=== PATIENT | male | born 1970 | race Caucasian/White ===

== ENCOUNTER 2017-08-19 21:01 | Emergency (ER) | payer SELFPAY ==
[~2017-08-19] VITALS: Ht 167.6 cm; Wt 85.8 kg
[2017-08-19 21:36] VITALS: BP 139/74; Ht 167.6 cm; Wt 85.8 kg
== END 2017-08-19 23:37 | disposition left against medical advice (07) ==
LOC: ED 21:01
DX: Z53.21 Procedure and treatment not carried out due to patient leaving prior to being seen by health care provider (principal)

== ENCOUNTER 2017-08-20 18:40 | Emergency (ER) | payer SELFPAY ==
[~2017-08-20] VITALS: Ht 167.6 cm; Wt 87.5 kg
[2017-08-20 19:46] VITALS: Ht 167.6 cm; Wt 87.5 kg
[2017-08-20 21:56] VITALS: BP 142/84
== END 2017-08-20 21:45 | disposition home or self-care (01) ==
LOC: ED 18:40
DX: B02.9 Zoster without complications (principal); R03.0 Elevated blood-pressure reading, without diagnosis of hypertension
CPT/HCPCS: J1885

== ENCOUNTER 2018-08-05 22:31 | Emergency (ER) | payer MEDICAID ==
[~2018-08-05] VITALS: Ht 167.6 cm; Wt 69.9 kg
[2018-08-05 22:57] VITALS: BP 136/87; Ht 167.6 cm; Wt 69.9 kg
== END 2018-08-06 00:15 | disposition home or self-care (01) ==
LOC: ED 22:31
DX: G89.29 Other chronic pain (principal); M25.511 Pain in right shoulder
CPT/HCPCS: Q0092

== ENCOUNTER 2018-08-14 14:23 | Emergency (ER) | payer MEDICAID ==
[~2018-08-14] VITALS: Ht 167.6 cm; Wt 70.3 kg
[2018-08-14 14:26] VITALS: BP 133/75; Ht 167.6 cm; Wt 70.3 kg
== END 2018-08-14 15:09 | disposition home or self-care (01) ==
LOC: ED 14:23
DX: S61.306A Unspecified open wound of right little finger with damage to nail, initial encounter (principal); X58.XXXA Exposure to other specified factors, initial encounter; Y93.89 Activity, other specified; Y92.89 Other specified places as the place of occurrence of the external cause; Y99.8 Other external cause status

== ENCOUNTER 2019-09-09 21:10 | Emergency (ER) | payer MEDICAID, SELFPAY ==
[~2019-09-09] VITALS: Ht 165.1 cm; Wt 79.6 kg
[2019-09-09 21:58] LABS: BASOPHIL % 0.5 % (0-2); PLATELET COUNT 217 x10^3mcL (130-400); RED CELL DISTRIBUTION WIDTH 14.1 % (11.5-14.5)
[2019-09-09 22:13] LABS: CALCIUM 8.8 mg/dL (8.5-10.1); CARBON DIOXIDE 29.9 mmol/L (21-32); CHLORIDE SERUM 107 mmol/L (98-107); GFR1 > 60 mL/min; GLUCOSE SERUM 106 mg/dL (74-106); POTASSIUM SERUM 3.7 mmol/L (3.5-5.1); SODIUM SERUM 143 mmol/L (136-145)
[2019-09-09 22:18] LABS: ALBUMIN 3.9 g/dL (3.4-5.0); ALKALINE PHOSPHATASE 100 U/L (46-116); ALT/SGPT 62 U/L (16-63); AST/SGOT 60 U/L (15-37); BILIRUBIN TOTAL 2.04 mg/dL (0.20-1.00); LIPASE 82 IU/L (73-393); TOTAL PROTEIN, SERUM 7.1 g/dL (6.4-8.2)
[2019-09-09 22:25] LABS: FREE T4 1.24 ng/dL (0.76-1.46); FREE THYROXINE INDEX 3.3 ug/dL (1.4-4.5); T4(THYROXINE) 8.8 ug/dL (4.7-13.3)
[2019-09-09 22:26] LABS: T3 TOTAL 1.13 ng/mL
[2019-09-10 00:20] VITALS: BP 121/64
== END 2019-09-10 00:20 | disposition home or self-care (01) ==
LOC: ED 21:10
PROVIDERS: Emergency Medicine
DX: R10.13 Epigastric pain (principal); R51 Headache; R63.0 Anorexia; R53.1 Weakness; Z20.828 Contact with and (suspected) exposure to other viral communicable diseases
CPT/HCPCS: 36415; 84439; Q0092

== ENCOUNTER 2019-12-20 16:40 | Emergency (ER) | payer MEDICAID ==
[~2019-12-20] VITALS: Ht 167.6 cm; Wt 80.7 kg
[2019-12-20 16:57] VITALS: Ht 167.6 cm; Wt 80.7 kg
[2019-12-20 17:37] VITALS: BP 130/71
== END 2019-12-20 17:37 | disposition home or self-care (01) ==
LOC: ED 16:40
DX: L03.115 Cellulitis of right lower limb (principal); S81.831A Puncture wound without foreign body, right lower leg, initial encounter; W57.XXXA Bitten or stung by nonvenomous insect and other nonvenomous arthropods, initial encounter; Y93.89 Activity, other specified; Y92.89 Other specified places as the place of occurrence of the external cause; Y99.8 Other external cause status
CPT/HCPCS: J2930

== ENCOUNTER 2020-01-06 17:10 | Emergency (ER) | payer MEDICAID ==
[~2020-01-06] VITALS: Ht 167.6 cm; Wt 87.1 kg
[2020-01-06 17:25] VITALS: BP 103/51; Ht 167.6 cm; Wt 87.1 kg
== END 2020-01-06 18:25 | disposition home or self-care (01) ==
LOC: ED 17:10
DX: L03.116 Cellulitis of left lower limb (principal)

== ENCOUNTER 2020-02-07 22:27 | Emergency (ER) | payer MEDICAID ==
[~2020-02-07] VITALS: Ht 165.1 cm; Wt 78.0 kg
[2020-02-07 22:31] VITALS: Ht 165.1 cm; Wt 78.0 kg
[2020-02-07 23:25] LABS: BASOPHIL % 0.3 % (0-2); PLATELET COUNT 208 x10^3mcL (130-400); RED CELL DISTRIBUTION WIDTH 15.1 % (11.5-14.5)
[2020-02-07 23:35] LABS: CALCIUM 8.7 mg/dL (8.5-10.1); CARBON DIOXIDE 28.1 mmol/L (21-32); CHLORIDE SERUM 106 mmol/L (98-107); GFR1 > 60 mL/min; GLUCOSE SERUM 112 mg/dL (74-106); POTASSIUM SERUM 3.2 mmol/L (3.5-5.1); SODIUM SERUM 142 mmol/L (136-145)
[2020-02-08 00:38] VITALS: BP 152/81
== END 2020-02-08 00:38 | disposition home or self-care (01) ==
LOC: ED 22:27
PROVIDERS: Emergency Medicine
DX: E86.0 Dehydration (principal); R42 Dizziness and giddiness; F12.10 Cannabis abuse, uncomplicated; R20.2 Paresthesia of skin

== ENCOUNTER 2020-03-01 11:15 | Emergency (ER) | payer MEDICAID ==
[~2020-03-01] VITALS: Ht 165.1 cm; Wt 70.8 kg
[2020-03-01 11:25] VITALS: Ht 165.1 cm; Wt 70.8 kg
[2020-03-01 14:24] VITALS: BP 134/79
== END 2020-03-01 14:24 | disposition home or self-care (01) ==
LOC: ED 11:15
DX: R07.89 Other chest pain (principal); W22.8XXA Striking against or struck by other objects, initial encounter; Y93.89 Activity, other specified; Y92.89 Other specified places as the place of occurrence of the external cause; Y99.8 Other external cause status